=== PATIENT | female | born 1965 | race Caucasian/White ===

== ENCOUNTER 2018-02-10 15:58 | Emergency (ER) | payer MEDICARE, OTHER ==
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
[2018-02-10 16:07] VITALS: BP 159/100; PULSE 87; TEMP 98; BMI 21.4
[2018-02-10] MEDS ORDERED: IBUPROFEN 400 MG TABLET (FP) PO ONE ×2 (16:37→16:39)
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
== END 2018-02-10 16:48 | disposition home or self-care (01) ==
LOC: JERFT 15:58
DX: M79.601 Pain in right arm (principal); I10 Essential (primary) hypertension; E78.00 Pure hypercholesterolemia, unspecified
CPT/HCPCS: 99281-25